=== PATIENT | female | born 1995 ===

== ENCOUNTER → 2018-05-16 | Outpatient (CLI) | payer SELFPAY ==
[2018-05-17 01:06] LABS: FOLLICLE STIMULATING HORMONE 3.1 mIU/mL (()); LUTENIZING HORMONE 2.9 mIU/mL (())
[2018-05-18 16:44] LABS: ADRENOCORTICOTROPIC HORMONE 9.4 pg/mL (())
== END ==
LOC: COL.LAB 08:54
DX: D35.2 Benign neoplasm of pituitary gland (principal)

== ENCOUNTER → 2018-07-14 | Outpatient (CLI) | payer SELFPAY ==
[2018-07-14 10:07] LABS: CALCIUM 9.8 mg/dL (8.4-10.2); CREATININE, serum 0.7 mg/dL (0.52-1.25); POTASSIUM 4.2 mmol/L (3.4-5.0)
[2018-07-14 10:37] LABS: THYROID STIMULATING HORMONE 5.71 uIU/mL (0.465-4.680)
[2018-07-14 16:04] LABS: CORTISOL RANDOM 14 ug/dL (3-20); ESTRADIOL 52 pg/mL (())
[2018-07-17 13:59] LABS: ADRENOCORTICOTROPIC HORMONE 38 pg/mL (())
== END ==
LOC: COL.LAB
PROVIDERS: Nurse Practitioner Family
DX: Z01.89 Encounter for other specified special examinations (principal)

== ENCOUNTER → 2021-10-28 | Outpatient (CLI) | payer SELFPAY ==
[2021-10-28 09:22] LABS: ALBUMIN 4.1 gm/dL (3.5-5.0); BILIRUBIN,TOTAL 0.4 mg/dL (0.2-1.2); CREATININE, serum 0.77 mg/dL (0.57-1.11); POTASSIUM 3.9 mmol/L (3.5-4.5); TOTAL PROTEIN 7.6 gm/dL (6.2-8.1)
[2021-10-28 21:53] LABS: CORTISOL, AM (0800) 8 ug/dL (3-20); DHEA (SULFATE) 179 mcg/dL (96-512)
[2021-10-28 23:04] LABS: PROCALCITONIN <0.05 ng/mL (0.00-0.09)
[2021-10-30 00:22] LABS: ADRENOCORTICOTROPIC HORMONE 16 pg/mL (5-27)
== END ==
LOC: COL.LAB 08:21
PROVIDERS: Specialist
DX: D35.2 Benign neoplasm of pituitary gland (principal); E89.3 Postprocedural hypopituitarism

== ENCOUNTER → 2021-11-26 | Outpatient (CLI) | payer SELFPAY | LOC: COL.LAB 10-27 10:18 → COL.RAD 07:30 → COL.LAB 07:30 → COL.RAD 07:37 | DX: D35.2 Benign neoplasm of pituitary gland (principal); E89.3 Postprocedural hypopituitarism; Z98.890 Other specified postprocedural states | CPT/HCPCS: A9575 ==

== ENCOUNTER → 2022-05-27 | Outpatient (CLI) | payer SELFPAY | LOC: COL.RAD 07:30 | DX: D49.2 Neoplasm of unspecified behavior of bone, soft tissue, and skin (principal); M48.04 Spinal stenosis, thoracic region | CPT/HCPCS: A9575 ==